=== PATIENT | male | born 1950 | race Caucasian/White ===

== ENCOUNTER → 2021-01-24 09:53 | Outpatient (CLI) | payer MEDICARE, SELFPAY ==
[2020-09-08 09:19] VITALS: BMI 39.4
--- NOTE | 2021-01-24 14:24 | NEURO ---
NCS and/or EMG Patient Report Ordering Doctor: Mendel Taylor DATE OF SERVICE: 01/24/21 Willi Presents for electrodiagnostic testing of the upper limbs. Reports numbness and tingling in the hands. He has a history of diabetes. He has a history of previous carpal tunnel release, several years ago. Electrodiagnostic findings:Median motor nerve demonstrates prolonged distal latency bilaterally with normal amplitude and reduced conduction velocity. Normal ulnar motor responses noted bilaterally. Prolonged left and right median F waves. Prolonged median sensory latency at the wrist. Prolonged median palmar latency. On needle EMG, no acute denervation was noted in any muscle tested. Motor unit action potentials were of normal amplitude and duration. Electrodiagnostic impression: This is an abnormal study in the upper limbs. 1. 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 This is consistent with a recurrent, moderate bilateral carpal tunnel syndrome 2. No electrodiagnostic evidence is noted for cervical radiculopathy.
== END ==
PROVIDERS: PCP Internal Medicine; Referring Provider Internal Medicine; Visit Provider Internal Medicine
DX: G56.03 Carpal tunnel syndrome, bilateral upper limbs (principal)
CPT/HCPCS: 95886; 95913